=== PATIENT | female | born 1995 | race Two or more races ===

== ENCOUNTER 2019-05-30 22:13 | Emergency (ER) | payer MEDICAID ==
[~2019-05-30] VITALS: Ht 154.9 cm; Wt 45.4 kg
--- NOTE | 2019-05-30 22:30 | NUR ---
Patient ambulated with stable gait. A/Ox4. Speech is clear, speaks in complete sentences. No neuro deficits. Patient came for cough x1 week, with worsening symptoms. Yesterday patient felt dizzy, and weak denies any episode today. Respiratory even and unlabored, with cough noted. Denies any n/v/d
--- NOTE | 2019-05-30 22:59 | NUR ---
Patient discharged to home in stable conditon. Written and verbal after care instructions given. Patient verbalizes understanding of instructions. Patient ambulated with stable gait.
[2019-05-30 23:02] VITALS: BP 120/70
== END 2019-05-30 23:04 | disposition home or self-care (01) ==
LOC: ER 22:13
DX: J20.9 Acute bronchitis, unspecified (principal); F17.200 Nicotine dependence, unspecified, uncomplicated
CPT/HCPCS: A4663